=== PATIENT | male | born 1980 | race Caucasian/White ===

== ENCOUNTER 2018-08-07 05:40 | Day surgery (SDC) | payer BC ==
[2018-08-07] MEDS ORDERED: LACTATED RINGER'S 1,000 ML IV* (06:00)
[2018-08-07] MEDS ORDERED: CEFAZOLIN 2 GM/50 ML (PMX) 50 ML IVPB ×2 (06:00→07:00)
[2018-08-07] MEDS ORDERED: PROPOFOL 200 MG INJ (07:00)
[2018-08-07] MEDS ORDERED: LIDOCAINE 2% (SDV) 5 ML INJ (07:00)
[2018-08-07] MEDS ORDERED: CEFAZOLIN 1 GM INJ (07:00)
[2018-08-07] MEDS ORDERED: ONDANSETRON 4 MG INJ IV (07:30)
[2018-08-07] MEDS ORDERED: ALBUTEROL 0.083% (NEB) 2.5 MG/3 ML AMP HHN (07:30)
[2018-08-07] MEDS ORDERED: MEPERIDINE 25 MG INJ IV (07:30)
[2018-08-07] MEDS ORDERED: METOCLOPRAMIDE 10 MG INJ IV (07:30)
[2018-08-07] MEDS ORDERED: HYDROmorphONE 1 MG/5 ML IV SYRINGE IV ×3 (07:30)
[2018-08-07] MEDS ORDERED: FENTAnyl 50 MCG/ML VIAL IV ×3 (07:30)
[2018-08-07] MEDS ORDERED: DIPHENHYDRAMINE 50 MG INJ IV (07:30)
[2018-08-07] MEDS ORDERED: MIDAZOLAM 1 MG/ML 2 ML INJ (07:43)
[2018-08-07] MEDS: LIDOCAINE 1%/EPI (1:100,000) (MDV) 20 ML (07:51)
[2018-08-07] MEDS: BUPIVACAINE 0.5% (SDV) 30 ML INJ (07:51)
[2018-08-07] MEDS: POLYMYXIN/BACITRACIN 1L IRRIG (08:10)
[2018-08-07] MEDS: GENTAMICIN 80 MG INJ (08:10)
[2018-08-07] MEDS ORDERED: OXYCODONE/ACETAMINOPHEN (5/325) TAB PO (09:00)
== END 2018-08-07 09:30 | disposition home or self-care (01) ==
LOC: SDS 05:40
DX: L72.0 Epidermal cyst (principal); I10 Essential (primary) hypertension
CPT/HCPCS: 11444; 88307